=== PATIENT | female | born 1960 | race Caucasian/White ===

== ENCOUNTER 2025-04-05 12:20 | Inpatient (IN) | payer MEDICARE ==
[~2025-04-05] VITALS: Ht 154.9 cm; Wt 57.6 kg
[2025-04-05] VITALS (7 sets, daily range): BP systolic 158; BP diastolic 93–96; PULSE 79–98; RESP 18–22; TEMP 96–98.2; O2SAT 94–96
[2025-04-05 13:01] LABS: BASOPHILS % 0.5 % (0.0-1.0); EOSINOPHILS % 0.7 % (0.0-6.0); HEMATOCRIT 35.5 % (34.2-44.1); HEMOGLOBIN 11.7 g/dL (12.0-16.0); LYMPHOCYTES # (AUTO) 1.4 (1.0-3.2); MONOCYTES # (AUTO) 0.3 (0.2-0.8); MONOCYTES % 4.8 % (4.4-11.3); NEUTROPHILS # (AUTO) 3.9 (2.1-6.9); NEUTROPHILS % 68.6 % (38.7-80.0); PLATELET COUNT 167 x10e3/uL (140-360); RED CELL DISTRIBUTION WIDTH 21.5 % (11.7-14.4); WHITE BLOOD COUNT 5.68 x10e3/uL (4.8-10.8)
[2025-04-05 13:20] LABS: INR 1.05; PROTHROMBIN TIME 14.7 seconds (11.9-14.5)
[2025-04-05 13:21] LABS: PARTIAL THROMBOPLASTIN TIME 33.7 seconds (23.8-35.5)
[2025-04-05 13:24] LABS: ALBUMIN 2.7 g/dL (3.5-5.0); ALBUMIN/GLOBULIN RATIO 0.7 (0.8-2.0); ANION GAP 16.8 mmol/L (8-16); BILIRUBIN,TOTAL 0.3 mg/dL (0.2-1.2); CALCIUM 8.2 mg/dL (8.4-10.2); CREATININE, SERUM 0.52 mg/dL (0.57-1.11); TOTAL PROTEIN 6.5 g/dL (6.5-8.1)
[2025-04-05 13:27] LABS: POTASSIUM 2.8 mmol/L (3.5-5.1)
[2025-04-05] MEDS: SODIUM CHLORIDE 0.9% 1000ML 1,000 ML IV ONE (13:27)
[2025-04-05] MEDS: METHYLPREDNISOLONE SOD SUCC 125 MG/2ML VIAL IV ONE (13:27)
[2025-04-05] MEDS: ALBUTEROL/IPRATROPIUM 3 ML NEB NEB ONE (13:28)
[2025-04-05] MEDS: POTASSIUM CHLORIDE 20MEQ/100ML 100 ML IV SCH (13:44)
[2025-04-05] MEDS: ACETAMINOPHEN 325 MG TAB PO ONE (15:21)
[2025-04-05] MEDS ORDERED: SODIUM CHLORIDE FLUSH 10 ML SYR INJ PRN (15:30)
[2025-04-05 15:36] LABS: BILIRUBIN,URINE SMALL (NEGATIVE); CLARITY,URINE SL CLOUDY (CLEAR); COLOR,URINE AMBER (YELLOW); GLUCOSE, URINE NEGATIVE (NEGATIVE); KETONES,URINE TRACE (NEGATIVE); LEUKOCYTE ESTERASE ,URINE NEGATIVE (NEGATIVE); NITRITE,URINE NEGATIVE (NEGATIVE); PH,URINE 6 (5 - 7); PROTEIN,URINE DIPSTICK 2+ (NEGATIVE); URINE UROBILINOGEN 1 mg/dL (0.2 - 1)
[2025-04-05 15:51] LABS: BACTERIA,URINE MODERATE /HPF; EPITHELIAL CELLS,URINE MODERATE /LPF
[2025-04-05 15:52] LABS: AMORPHOUS SEDIMENT,URINE MODERATE; TRANSITIONAL EPI CELLS,URINE FEW
[2025-04-05] MEDS ORDERED: WIXELA 250-501 EACH IH (19:59)
[2025-04-05] MEDS ORDERED: ATROVENT HFA12.9 GM IH (19:59)
[2025-04-05] MEDS ORDERED: SODIUM CHLORI1000 M2 PO (19:59)
[2025-04-06] VITALS (13 sets, daily range): BP systolic 109–164; BP diastolic 68–95; PULSE 75–105; RESP 17–20; TEMP 97.2–97.7; O2SAT 93–99
[2025-04-06 05:54] LABS: HEMATOCRIT 34.4 % (34.2-44.1); HEMOGLOBIN 11.2 g/dL (12.0-16.0); LYMPHOCYTES # (AUTO) 0.4 (1.0-3.2); LYMPHOCYTES % 13.5 % (18.0-39.1); MEAN CORPUSCULAR HEMOGLOBIN 30.1 pg (28-32); MEAN CORPUSCULAR HGB CONC 32.6 g/dL (31-35); MEAN CORPUSCULAR VOLUME 92.5 fL (81-99); MONOCYTES % 1.3 % (4.4-11.3); NEUTROPHILS # (AUTO) 2.6 (2.1-6.9); NEUTROPHILS % 84.9 % (38.7-80.0); PLATELET COUNT 152 x10e3/uL (140-360); RED BLOOD COUNT 3.72 x10e6/uL (3.6-5.1); RED CELL DISTRIBUTION WIDTH 21.6 % (11.7-14.4); WHITE BLOOD COUNT 3.11 x10e3/uL (4.8-10.8)
[2025-04-06 06:06] LABS: ALBUMIN 2.7 g/dL (3.5-5.0); ALBUMIN/GLOBULIN RATIO 0.7 (0.8-2.0); ANION GAP 16.8 mmol/L (8-16); BILIRUBIN,TOTAL 0.5 mg/dL (0.2-1.2); CALCIUM 8.1 mg/dL (8.4-10.2); CREATININE, SERUM 0.47 mg/dL (0.57-1.11); POTASSIUM 3.8 mmol/L (3.5-5.1); TOTAL PROTEIN 6.4 g/dL (6.5-8.1)
[2025-04-06] MEDS ORDERED: ALBUTEROL/IPRATROPIUM 3 ML NEB NEB PRN (09:15)
[2025-04-06] MEDS ORDERED: METOPROLOL TARTRATE INJ 1 MG/ML VIAL IV PRN (09:15)
[2025-04-06] MEDS: SIMETHICONE 80 MG CHEW PO PRN (09:54)
[2025-04-06] MEDS: Doxycycline IV 100 MG in SODIUM CHLORIDE 0.9% 100 ML IV SCH (09:55)
[2025-04-06] MEDS: METHYLPREDNISOLONE SOD SUCC 40 MG/ML VIAL 1ML IV SCH (09:55)
[2025-04-06] MEDS: ACETAMINOPHEN 325 MG TAB PO PRN (10:36)
[2025-04-06] MEDS: ALBUTEROL/IPRATROPIUM 3 ML NEB NEB PRN (11:01)
[2025-04-06] MEDS: BENZONATATE 100 MG CAP PO SCH (14:10)
[2025-04-06] MEDS: FAMOTIDINE 20 MG TAB PO SCH (16:59)
[2025-04-06] MEDS: ENOXAPARIN SOD INJ 40 MG/0.4 ML SYR SC SCH (17:00)
[2025-04-07] VITALS (12 sets, daily range): BP systolic 94–131; BP diastolic 62–87; PULSE 58–114; RESP 16–22; TEMP 97.6–97.9; O2SAT 95–100
[2025-04-07 06:51] LABS: HEMATOCRIT 30.3 % (34.2-44.1); HEMOGLOBIN 10.1 g/dL (12.0-16.0); LYMPHOCYTES # (AUTO) 0.4 (1.0-3.2); MEAN CORPUSCULAR HEMOGLOBIN 30.3 pg (28-32); MEAN CORPUSCULAR HGB CONC 33.3 g/dL (31-35); MONOCYTES # (AUTO) 0.2 (0.2-0.8); MONOCYTES % 3.4 % (4.4-11.3); NEUTROPHILS # (AUTO) 3.8 (2.1-6.9); NEUTROPHILS % 86.1 % (38.7-80.0); PLATELET COUNT 155 x10e3/uL (140-360); RED BLOOD COUNT 3.33 x10e6/uL (3.6-5.1); RED CELL DISTRIBUTION WIDTH 22.3 % (11.7-14.4); WHITE BLOOD COUNT 4.42 x10e3/uL (4.8-10.8)
[2025-04-07 07:17] LABS: CREATININE, SERUM 0.48 mg/dL (0.57-1.11)
[2025-04-07] MEDS: SODIUM CHLORIDE 1 GM TAB PO SCH (08:47)
[2025-04-07] MEDS: LORATADINE 10 MG TAB PO SCH (08:47)
[2025-04-07] MEDS: DILTIAZEM HCL ER 120 MG CAP PO SCH (17:16)
[2025-04-07] MEDS: BUDESONIDE/FORMOTEROL 160/4.5MCG INHALER INH SCH (19:26)
[2025-04-08] VITALS (11 sets, daily range): BP systolic 92–132; BP diastolic 50–77; PULSE 60–96; RESP 16–22; TEMP 97.3–98.1; O2SAT 95–100
[2025-04-08] MEDS: MELATONIN 3 MG TAB PO PRN (03:03)
[2025-04-08] MEDS: SODIUM CHLORIDE 0.9% 250ML 250 ML ONE (07:40)
[2025-04-08] MEDS: PREDNISONE 10 MG TAB PO SCH (08:22)
[2025-04-08] MEDS ORDERED: PREDNISONE10 MG PO (09:57)
[2025-04-08] MEDS ORDERED: CEPHALEXIN500 MG PO (09:57)
[2025-04-08] MEDS ORDERED: FAMOTIDINE20 MG PO (09:57)
[2025-04-08] MEDS ORDERED: LORATADINE10 MG PO (09:57)
[2025-04-08] MEDS ORDERED: BENZONATATE100 MG PO (09:57)
[2025-04-08] MEDS ORDERED: DOXYCYCLINE HY100 MG PO (09:57)
[2025-04-08] MEDS ORDERED: DILTIAZEM 24HR120 M1 PO (09:57)
[2025-04-08 10:53] LABS: HEMOGLOBIN 10.9 g/dL (12.0-16.0); LYMPHOCYTES # (AUTO) 0.7 (1.0-3.2); LYMPHOCYTES % 9.1 % (18.0-39.1); MEAN CORPUSCULAR HEMOGLOBIN 30.2 pg (28-32); MEAN CORPUSCULAR VOLUME 91.4 fL (81-99); MONOCYTES # (AUTO) 0.3 (0.2-0.8); MONOCYTES % 3.6 % (4.4-11.3); NEUTROPHILS # (AUTO) 6.7 (2.1-6.9); PLATELET COUNT 145 x10e3/uL (140-360); RED BLOOD COUNT 3.61 x10e6/uL (3.6-5.1); RED CELL DISTRIBUTION WIDTH 22.8 % (11.7-14.4); WHITE BLOOD COUNT 7.69 x10e3/uL (4.8-10.8)
[2025-04-08 11:08] LABS: ANION GAP 14.8 mmol/L (8-16); CALCIUM 8.3 mg/dL (8.4-10.2); CREATININE, SERUM 0.55 mg/dL (0.57-1.11)
[2025-04-08 11:15] LABS: POTASSIUM 2.8 mmol/L (3.5-5.1)
[2025-04-08] MEDS: POTASSIUM CHLORIDE 20MEQ/100ML 100 ML IV SCH (13:11)
[2025-04-08] MEDS: GUAIFENESIN/DEXTROMETHORPHAN LIQD 5 ML UDC NG PRN (21:31)
[2025-04-09] VITALS (8 sets, daily range): BP systolic 116–149; BP diastolic 72–82; PULSE 80–115; RESP 18–25; TEMP 98.2; O2SAT 94–100
[2025-04-09] MEDS: ONDANSETRON HCL INJ 2MG/ML 2ML 2 MG/ML VIAL IV PRN (01:34)
[2025-04-09 09:45] LABS: ANION GAP 14.4 mmol/L (8-16); CALCIUM 8.2 mg/dL (8.4-10.2); CREATININE, SERUM 0.57 mg/dL (0.57-1.11)
[2025-04-09 09:47] LABS: POTASSIUM 3.4 mmol/L (3.5-5.1)
[2025-04-09 10:04] LABS: PHOSPHORUS 2.1 MG/DL (2.3-4.7)
[2025-04-09 10:22] LABS: MAGNESIUM 1.1 MG/DL (1.3-2.1)
[2025-04-09] MEDS: MAGNESIUM SULFATE 2GM/50ML 50 ML IV ONE (10:38)
[2025-04-09] MEDS: DILTIAZEM HCL 60 MG TAB PO ONE (11:40)
[2025-04-09] MEDS: DILTIAZEM HCL ER 90MG CAPSULE PO SCH (16:55)
== END 2025-04-09 18:50 | disposition home or self-care (01) | DRG 190 ==
LOC: ER 12:33 → ERHOLD 15:26 → MED/SURG 18:06
PROVIDERS: ADMIT Internal Medicine; ATTEND Internal Medicine
DX: J44.1 Chronic obstructive pulmonary disease with (acute) exacerbation (principal); J96.01 Acute respiratory failure with hypoxia; N39.0 Urinary tract infection, site not specified; I48.20 Chronic atrial fibrillation, unspecified; E87.6 Hypokalemia; I10 Essential (primary) hypertension; B96.20 Unspecified Escherichia coli [E. coli] as the cause of diseases classified elsewhere; I48.0 Paroxysmal atrial fibrillation; I49.3 Ventricular premature depolarization; I49.1 Atrial premature depolarization; Z72.0 Tobacco use
CPT/HCPCS: 36415; 70450; 71045; 80048; 80053; 81001; 83605; 83735; 84100; 84132; 84484; 85025; 85610; 85730; 87040; 87086; 87186; 93005; 93306; 93880; 94640; 94664; 94799; 99284; J0696; J1650; J2405; J2919; J3475; J3480; J7030; J7050; J7512